=== PATIENT | female | born 1980 | race Caucasian/White ===

== ENCOUNTER 2021-07-21 14:04 | Emergency (ER) | payer BC ==
[~2021-07-21] VITALS: Ht 170.2 cm; Wt 63.5 kg
[2021-07-21] MEDS ORDERED: HYDROCODONE/APAP 5MG-325MG TAB PO PRN (14:45)
[2021-07-21] MEDS ORDERED: PREDNISONE20 MG PO (14:56)
[2021-07-21] MEDS ORDERED: LIDOCAINE1 EAC1 TD (14:56)
[2021-07-21] MEDS ORDERED: HYDROCODON-ACE1 EA11 PO (15:01)
== END 2021-07-21 15:09 | disposition home or self-care (01) ==
LOC: FSED 14:10
DX: M54.12 Radiculopathy, cervical region (principal); F17.210 Nicotine dependence, cigarettes, uncomplicated
CPT/HCPCS: 99282